=== PATIENT | female | born 1955 | race Hispanic/Latino ===

== ENCOUNTER 2022-08-16 11:33 | Outpatient (RCR) | payer OTHER ==
[2022-08-16] MEDS ORDERED: LIDOCAINE VISC 2% SOLN 15 ML UDC ONE (12:33)
== END 2022-09-01 ==
LOC: WCC 11:33
PROVIDERS: ATTEND Internal Medicine Infectious Disease
DX: E11.65 Type 2 diabetes mellitus with hyperglycemia (principal); S31.105A Unspecified open wound of abdominal wall, periumbilic region without penetration into peritoneal cavity, initial encounter; I66.9 Occlusion and stenosis of unspecified cerebral artery; K42.9 Umbilical hernia without obstruction or gangrene; I10 Essential (primary) hypertension; E78.5 Hyperlipidemia, unspecified; M17.11 Unilateral primary osteoarthritis, right knee; M17.12 Unilateral primary osteoarthritis, left knee
CPT/HCPCS: 36415; 82948